=== PATIENT | female | born 1990 | race Caucasian/White ===

== ENCOUNTER 2021-05-29 03:57 | Emergency (ER) | payer MEDICAID, SELFPAY ==
[2021-05-29 04:02] VITALS: BP 151/79; PULSE 102; RESP 20; O2SAT 98; BMI 28.3
--- NOTE | 2021-05-29 04:11 | ED.GENADULT ---
HPI - General Adult General Chief complaint: OB Stated complaint: child Time Seen by Provider: 05/29/21 04:11 Source: patient and family (Significant other) Mode of arrival: ambulatory Limitations: no limitations History of Present Illness HPI narrative: 30-year-old female 40 week came in thinking she is in active labor. Patient not sure if she broke the water, increase frequency of contractions every 15 minutes now. Patient declined care, patient also admitted to use heroin IV 3 days ago. Related Data Allergies Allergy/AdvReac Type Severity Reaction Status Date / Time grapefruit [GRAPEFRUIT] Allergy Severe ANAPHYLAXIS Verified 05/29/21 04:06 Review of Systems Review of Systems: All other systems are reviewed and are negative Constitutional: Reports as per HPI and Reports no additional constitutional complaints Eyes: Reports as per HPI and Reports no additional eye complaints Reports system reviewed and no additional complaints, except as documented Cardiovascular: Reports as per HPI and Reports no additional cardiovascular complaints Respiratory: Reports as per HPI and Reports no additional respiratory complaints Gastrointestinal: Reports as per HPI and Reports no additional gastrointestinal complaints Genitourinary: Reports no additional female genitourinary complaints Musculoskeletal: Reports no additional musculoskeletal complaints Skin/Breast: Reports system reviewed and no additional complaints, except as docu Psychiatric: Reports no additional psychiatric complaints Endocrine: Reports no additional endocrine complaints Hematologic/Lymphatic: Reports no additional hematologic/lymphatic complaints Allergic/Immunologic: Reports no additional allergic/immunologic complaints Reports system reviewed and no additional complaints, except as documented and Reports Abnormal speech present [facility] Past Medical History Medical History Glaucoma Social History Social History Advance Directives: No Advance Directives Information Provided: No Patient : Yes Physical Exam Vital Signs: Vital Signs: Last Vital Signs Pulse 102 H 05/29/21 04:02 Resp 20 05/29/21 04:02 BP 151/79 H 05/29/21 04:02 Pulse Ox 98 05/29/21 04:02 Body Mass Index 28.3 Vital signs have been reviewed as appeared to be correct. Blood pressure normal. Heart rate normal. Respiration rate normal. Temperature normal. Oxygen saturation normal. Appearance: acute distress from pain and contraction Head: Normal external exam. Normocephalic. Atraumatic. No Mathis signs noted. No raccoon eyes noted Eyes: PERRLA. EOMI. Conjunctiva and sclera normal. Eyelids normal. ENT: TM's Normal. Pharynx normal. Uvula midline. Moist mucous membranes. No trismus noted. No drooling noted. No muffled voice noted. Neck: Normal inspection. Neck supple. FROM. No adenopathy. Thyroid Normal. No meningeal signs. No neck mass noted. CVS: Normal heart rate and rhythm. Heart sound normal. No murmurs noted. Pulses normal throughout. Respiratory: No respiratory distress. Painless inspiration. Breath sounds normal. No wheezes/rales/rhonchi noted. Chest nontender. No accessory muscle usage noted or decreased air movement noted. Abdomen: Soft and nontender. Bowel sounds normal in all 4 quadrants. No distention noted. No organomegaly noted. No visible injury noted. Pelvic exam: Cervix is dilated 5 cm , 50% effaced, feeling vertex bone. Back: No CVA tenderness. Full range of motion noted. Skin: Skin warm and dry. Normal skin color. Normal skin turgor. No rashes/lesions/lacerations noted. Extremities: No lower extremity edema. Extremities exhibit normal range of motion. Extremities nontender. Neuro: Oriented X 3. Cranial nerve exam: II-XII are grossly intact No motor deficit. No sensory deficit. Reflexes normal. Course Course Course Narrative: Assessment and plan. 30-year-old female 40 weeks dilated about 5-6 cm cervix and about 60% effaced, the case discussed with Dr. Pozo who recommended to call the ambulance, and transferred to [facility], the case discussed with Dr. Crane who accepted the patient to ED. Reevaluation(s) Reevaluation #1: Patient now is 9 cm dilated cervix with about 90% effaced, Dr. Pozo at the bedside Time: 04:26 Reevaluation #2: Baby Boy was delivered at 05:[address] Pozo, patient was tried under the heater, suction was performed with mucoid on your in aspirated, initially with 1st Apgars score is 6, 10 minutes score is 9. Medical Decision Making Lab Data Result diagrams: 05/29/21 04:59 05/29/21 04:59 Labs: Lab Results 05/29/21 05/29/21 05/29/21 Range/Units 04:13 04:59 04:59 WBC 24.0 H (4.8-10.8) X10*3/uL RBC 3.90 L (4.20-5.50) X10*6/uL Hgb 11.9 L (12.0-16.0) g/dl Hct 35.1 L (37-47) % MCV 90.0 (80-98) fL MCH 30.5 (27.0-33.0) pg MCHC 33.9 (31.0-35.0) g/dl RDW 13.4 (11.0-16.0) % Plt Count 424 H (160-400) X10*3/uL MPV 8.5 L (9.4-12.3) fL Immature Gran % (Auto) 1.5 H (0.0-0.4) % Neut % (Auto) 68.0 (45-73) % Lymph % (Auto) 23.7 (20-40) % Collingsworth % (Auto) 6.1 (2-11) % Eos % (Auto) 0.4 (0-4) % Baso % (Auto) 0.3 (0-2) % Lymph # (Auto) 5.7 H (1.2-4.9) X10*3/uL Collingsworth # (Auto) 1.5 H (0.1-1.2) X10*3/uL Eos # (Auto) 0.1 (0.0-0.4) X10*3/uL Baso # (Auto) 0.1 (0.0-0.2) X10*3/uL Abs Immat Gran (auto) 0.35 H (0.00-0.03) X10*3/uL Absolute Neuts (auto) 16.3 H (2.0-8.3) X10*3/uL Absolute Nucleated RBC 0.000 (0.0-0.012) X10*3/uL Nucleated RBC % (auto) 0.0 (0.0-0.2) /100WBC Smear Tech's Comments VERIFIED Sodium 139 (135-145) mmol/L Potassium 4.1 (3.3-5.1) mmol/L Chloride 108 (96-108) mmol/L Carbon Dioxide 17 L (22-29) mmol/L Anion Gap 18 (12-20) BUN 8 L (9-16) mg/dL Creatinine 0.63 (0.5-1.4) mg/dL Estim Creat Clear Calc 134.0 Estimated GFR > 60 Random Glucose 117 H (60-115) mg/dL Calcium 9.2 (8.4-10.2) mg/dL Ethyl Alcohol mg/dL Coronavirus (PCR) NEGATIVE (Negative) Influenza Type A (PCR) NEGATIVE (Negative) Influenza Type B (PCR) NEGATIVE (Negative) RSV RNA Qual (PCR) NEGATIVE (Negative) Blood Type Antibody Screen 05/29/21 05/29/21 Range/Units 04:59 05:03 WBC (4.8-10.8) X10*3/uL RBC (4.20-5.50) X10*6/uL Hgb (12.0-16.0) g/dl Hct (37-47) % MCV (80-98) fL MCH (27.0-33.0) pg MCHC (31.0-35.0) g/dl RDW (11.0-16.0) % Plt Count (160-400) X10*3/uL MPV (9.4-12.3) fL Immature Gran % (Auto) (0.0-0.4) % Neut % (Auto) (45-73) % Lymph % (Auto) (20-40) % Collingsworth % (Auto) (2-11) % Eos % (Auto) (0-4) % Baso % (Auto) (0-2) % Lymph # (Auto) (1.2-4.9) X10*3/uL Collingsworth # (Auto) (0.1-1.2) X10*3/uL Eos # (Auto) (0.0-0.4) X10*3/uL Baso # (Auto) (0.0-0.2) X10*3/uL Abs Immat Gran (auto) (0.00-0.03) X10*3/uL Absolute Neuts (auto) (2.0-8.3) X10*3/uL Absolute Nucleated RBC (0.0-0.012) X10*3/uL Nucleated RBC % (auto) (0.0-0.2) /100WBC Smear Tech's Comments Sodium (135-145) mmol/L Potassium (3.3-5.1) mmol/L Chloride (96-108) mmol/L Carbon Dioxide (22-29) mmol/L Anion Gap (12-20) BUN (9-16) mg/dL Creatinine (0.5-1.4) mg/dL Estim Creat Clear Calc Estimated GFR Random Glucose (60-115) mg/dL Calcium (8.4-10.2) mg/dL Ethyl Alcohol < 10 mg/dL Coronavirus (PCR) (Negative) Influenza Type A (PCR) (Negative) Influenza Type B (PCR) (Negative) RSV RNA Qual (PCR) (Negative) Blood Type O Negative Antibody Screen NEGATIVE Discharge Plan Discharge Clinical Impression: Normal delivery at term Patient Disposition: [facility] Transfer Details: [facility]
--- NOTE | 2021-05-29 04:19 | PC.NURSE ---
PT 40 WKS W/NO CARE. STATES 1 OTHER HEALTHY . STATES CONTRACTIONS BEGAN @ 0300, STATES BEFORE THAT SHE HAD LOST HER MUCOUS PLUG BUT DOESN'T KNOW WHEN. PT ADMITS TO HEROIN USE 3 DAYS AGO NASALLY. DENIES OTHER DRUG USE
--- NOTE | 2021-05-29 04:28 | PC.NURSE ---
@04:07 DR BECKFORD ASKS TO SPEAK WITH [facility] [phone] AGUSTINA MELÉNDEZ CASINO ASSISTANT MANAGER TAKES CALL AND SPEAKS WITH DR BECKFORD @04:09 [facility] CALLED FOR ACTIVE LABOR TRANSFER TO [facility] @04:18 DR BECKFORD ASKS FOR 2ND CALL TO [facility] FOR ETA OF AMBULANCE FOR THIS TRANSFER, TOLD SHORTLY @04:25 [facility] ARRIVES FOR TRANSFER
--- NOTE | 2021-05-29 04:59 | PC.NURSE ---
@04:50 DR BECKFORD ASKS FOR THE NICU TRUCK FROM [facility] @ [facility] REQUEST FOR BABY TRANSPORT [facility] CALLED FOR NICU TRUCK, TOLD BY [facility] THAT THEY ARE NOT CONTRACTED WITH US AND CAN NOT ACTIVATE THE NICU TEAM WITHOUT BEING CALLED BY [facility] OR [facility] FOR THE TRANSFER AND WILL NOT BE SENDING THE NICU TRUCK HERE FOR THIS TRANSFER TO [facility]. DUE TO US NOT HAVING A CONTRACT WITH [facility]. @6105 CALL OUT TO AGUSTINA MELÉNDEZ NURSE BLOCKMAN TO INFORM HER THAT [facility] NICU TRUCK NEEDED TO BE ACTIVATED BY HER FOR THIS BABY TRANSFER.
[2021-05-29 05:04] LABS: Basophils Absolute Auto 0.1 X10*3/uL (0.0-0.2); Basophils Percent Auto 0.3 % (0-2); Eosinophils Absolute Auto 0.1 X10*3/uL (0.0-0.4); Eosinophils Percent Auto 0.4 % (0-4); Hematocrit 35.1 % (37-47); Hemoglobin 11.9 g/dl (12.0-16.0); Imm Gran Abs Auto 0.35 X10*3/uL (0.00-0.03); Imm Gran Pct Auto 1.5 % (0.0-0.4); Lymphocytes Absolute Auto 5.7 X10*3/uL (1.2-4.9); Lymphocytes Percent Auto 23.7 % (20-40); MANUAL DIFF FLAG SCAN; Mean Corpuscular HGB Conc 33.9 g/dl (31.0-35.0); Mean Corpuscular Hemoglobin 30.5 pg (27.0-33.0); Mean Platelet Volume 8.5 fL (9.4-12.3); Monocytes Absolute Auto 1.5 X10*3/uL (0.1-1.2); Monocytes Percent Auto 6.1 % (2-11); Neutrophils Absolute Auto 16.3 X10*3/uL (2.0-8.3); Platelet Count 424 X10*3/uL (160-400); Red Cell Distribution Width 13.4 % (11.0-16.0); SCAN SMEAR FLAG 1
[2021-05-29 05:07] LABS: SLIDE REVIEW VERIFIED
[2021-05-29 05:08] LABS: Influenza A PCR NEGATIVE (Negative); Influenza B PCR NEGATIVE (Negative); Resp Syncy Virus RNA Qual PCR NEGATIVE (Negative); SARS COV2 PCR INHOUSE NEGATIVE (Negative)
[2021-05-29 05:24] LABS: Ethanol < 10 mg/dL
[2021-05-29 05:25] LABS: Anion Gap 18 (12-20); Blood Urea Nitrogen 8 mg/dL (9-16); Calcium 9.2 mg/dL (8.4-10.2); Carbon Dioxide 17 mmol/L (22-29); Chloride 108 mmol/L (96-108); Estimated Glomerular Filt Rate > 60; Glucose Random 117 mg/dL (60-115); Potassium 4.1 mmol/L (3.3-5.1); Sodium 139 mmol/L (135-145)
--- NOTE | 2021-05-29 05:48 | PC.NURSE ---
Full Term baby boy delivered at 05:48am vaginally. and this RN present for delivery. Midline episiotomy performed at bedside prior to infant's delivery. Infant in OA position. Upon , initial score of 6. Poor tone, color, respirations, and tone. Heart rate 120s. Brought to warmer, cord cut & clamped by . PPV bag mask used by this RN, suctioned thick meconium from baby's mouth, with stimulation performed. responded well to resuscitation interventions. also present. Initial temperature 99.2 rectally. Wrapped in warm blankets once stable and performed skin to skin. Mother wants to feed infant formula, refused . Father of baby also present for 's . information: 05/29/2021 @ 05:48am 21 inches long, 8 lbs 5.7oz (3792 grams), Head circumference: 35cm
--- NOTE | 2021-05-29 06:02 | PC.NURSE ---
@05:06 RETURN CALL FROM ENERGY AUDIT ADVISOR AGUSTINA FROM [facility] SAYING SHE CALL [facility] WHO THE HAVE A CONTRACT WITH AND THEY SAID THEY COULD NOT ACCOMMODATED THIS TRANSFER AND WAS TOLD TO CALL [facility] FOR NICU TRUCK @05:27 RETURN CALL FROM SAVANA BERRIOS SAYING THAT THEY CAN NOT BE DISPATCHED BY THEM @ [facility] ONLY BY [facility]. @ 05:57 A BABY BOY IS BORN, STILL NO AMBULANCE TRANSPORT AVAILABLE FOR THIS PT OR HER BABY TO [facility].
--- NOTE | 2021-05-29 06:14 | P.CONOB_ITS ---
OB Consult Note - HPI Data Service Date: 05/29/21 Primary Care Provider: Unknown Physician Narrative I was called at 4 o'clock regarding Lisha Donovan who is a 30 year old female presents to the emergency room was noted to be dictated in labor per ER physician. I arrived at 04:20 cervical exam was 9-10 head at -2, decision was made to deliver the patient in the emergency room because she is not stable enough for transfer. The patient admits to using heroin IV 3 days prior to presentation. GLOBAL COMPENSATION MANAGER - Review of Systems Review of Systems ROS Unobtainable: All systems reviewed & are unremarkable except as noted in HPI and below OB PMFSH Past Medical History Medical History Glaucoma Social History Social History Advance Directives: No Advance Directives Information Provided: No Patient : Yes Meds Allergies Allergy/AdvReac Type Severity Reaction Status Date / Time grapefruit [GRAPEFRUIT] Allergy Severe ANAPHYLAXIS Verified 05/29/21 04:06 OB Physical Exam Evaluation Baseline FHR:: 120 Station: -3 Effacement: 100% Dilation: 9 Presentation: Vertex OB Consult Results Labs CBC & Chem 7: 05/29/21 04:59 05/29/21 04:59 Labs: Short CBC 05/29/21 Range/Units 04:59 WBC 24.0 H (4.8-10.8) X10*3/uL Hgb 11.9 L (12.0-16.0) g/dl Hct 35.1 L (37-47) % Plt Count 424 H (160-400) X10*3/uL BMP 05/29/21 04:59 Sodium 139 Potassium 4.1 Chloride 108 Carbon Dioxide 17 L BUN 8 L Creatinine 0.63 Calcium 9.2 Antibody Screen Antibody Screen NEGATIVE 05/29/21 05:03 OB - CN: A/P Assessment and Plan (1) Normal delivery at term: Status: Acute Assessment and Plan: Since the patient was 9-10 cm and pushing decision was made that she is not stable enough to be transferred to any other hospital where there is a maternity care. Will proceed with vaginal delivery and transferred mom and baby pos tpartum afterwards. CBC type and screen sent to the [facility] ordered. Patient delivered spontaneous vaginal delivery with median episiotomy repaired with 3-0 Vicryl. No hemorrhage Will transfer the patient and bay stat Dr Hopper accepted the transfer OB Procedures - Admit Record Additional Comments
--- NOTE | 2021-05-29 06:19 | PM.OBPRVD ---
OB Delivery Summary Date and Time Date of Documentation: May 29, 2021 Time of Documentation: 618 OB Detailed Note/Comments Detailed Note/Additional Comments Delivery note lab data not available, the patient has no care, gives a history of heroin IV use 3 days prior to presentation She presented at 0400 hours this am complaining of UCs q 5 minutes. Her cervix done by the ER physician was 8-9 cm cm, 90% effaced and at a ?1 station. FHR 120's. I arrived at 04:20 a.m. cervical exam was 9-10 cm/ -3/ vertex/ 100% She progressed to complete and was allowed to push, bringing the ?s vertex to the perineum.The patient was noted to be complete and pushing, so was placed in the dorsal lithotomy position, prepped and draped in the usual sterile fashion for a vaginal delivery. The patient was asked to push and the head delivered spontaneously in the KALYAN position, over a midline episiotomy. The oropharynx were suctionned wth a bulb on the perineum. A nuchal cord was checked and none noted, and relieved around head as necessary. The anterior shoulder delivered easily and the posterior shoulder followed. The remainder of the infant was easily delivered and the oropharynx and nasopharynx was again bulb suctioned. The was noted to have spontaneous cry and spontaneous movement of all four extremities. The cord was clamped x 2 and cut and noted to have 2 arteries and one vein. The was passed to the waitinf RN and ER physocon. Cord blood obtained). The placenta delivered intact spontaneously. 30 units of Pitocin was placed in the IV bag to firm the uterus. Examination of the cervix and vaginal vault did not reveal any lacerations.. Examination of the perineum showedno extension of episiotom, /no urethral tears. The episiotomy was repaired with 3-0 Vicryl in the normal fashion. The patient tolerated this procedure well. All sponge and needle counts were correct
--- NOTE | 2021-05-29 06:25 | PC.NURSE ---
@06:20 DR KAUR SPEAKS WITH [facility] ON THIS PT AND HER BABY BOY FOR TRANSFER
--- NOTE | 2021-05-29 06:34 | W.PM.OPN ---
Operative Note Operative Note Date of Service: 05/29/21 Narrative: Delivery note lab data not available, the patient has no care, gives a history of heroin IV use 3 days prior to presentation She presented at 0400 hours this am complaining of UCs q 5 minutes. Her cervix done by the ER physician was 8-9 cm cm, 90% effaced and at a ?1 station. FHR 120's. I arrived at 04:20 a.m. cervical exam was 9-10 cm/ -3/ vertex/ 100% She progressed to complete and was allowed to push, bringing the ?s vertex to the perineum.The patient was noted to be complete and pushing, so was placed in the dorsal lithotomy position, prepped and draped in the usual sterile fashion for a vaginal delivery. The patient was asked to push and the head delivered spontaneously in the KALYAN position, over a midline episiotomy. The oropharynx were suctionned wth a bulb on the perineum. A nuchal cord was checked and none noted, and relieved around head as necessary. The anterior shoulder delivered easily and the posterior shoulder followed. The remainder of the infant was easily delivered and the oropharynx and nasopharynx was again bulb suctioned. The infant was noted to have spontaneous cry and spontaneous movement of all four extremities. The cord was clamped x 2 and cut and noted to have 2 arteries and one vein. The was passed to the waitinf RN and ER physocon. Cord blood obtained). The placenta delivered intact spontaneously. 30 units of Pitocin was placed in the IV bag to firm the uterus. Examination of the cervix and vaginal vault did not reveal any lacerations.. Examination of the perineum showedno extension of episiotom, /no urethral tears. The episiotomy was repaired with 3-0 Vicryl in the normal fashion. The patient tolerated this procedure well. All sponge and needle counts were correct
--- NOTE | 2021-05-29 06:36 | PC.NURSE ---
@ THIS TIME DHARMESH FROM [facility] PT TX LINE CALLS TO SAY NOT TO SEND THESE PT'S UNTIL THEY CALL US BACK WITH ROOM ASSIGNMENT
[2021-05-29 06:51] VITALS: BP 125/75; PULSE 100; RESP 18; TEMP 36.9; O2SAT 98
[2021-05-29 07:26] VITALS: BP 126/87; PULSE 106; RESP 20; TEMP 37.1; O2SAT 98
--- NOTE | 2021-05-29 07:35 | PC.NURSE ---
Pt alert and oriented, vss. currently cuddling and singing to baby. Mom interacting appropriately with baby. Pt ambula to bathroom x1 to void and change pad. Pad with moderate amount of dark colored blood noted on pad and toilet, no clots noted. Pt in no apparent distress. at bedside. Pt awaiting transport to [facility].
--- NOTE | 2021-05-29 08:00 | MHC.CARE ---
51A filed by the CARE Team
[2021-05-29] MEDS: Rho(D) Immune Globulin 300 MCG SYRINGE IM (08:58)
[2021-05-29] MEDS: Ibuprofen 400 MG TABLET PO (08:58)
--- NOTE | 2021-05-29 09:31 | PC.NURSE ---
Transferred via EMS to [facility], room 1730. Report given to GALEN Stoll at [facility]. in NICU truck with [facility].
== END 2021-05-29 09:33 | disposition short-term general hospital (02) ==
PROVIDERS: Emergency Medicine; Emergency Provider Emergency Medicine Emergency Medical Services
DX: O99.324 Drug use complicating childbirth (principal); F11.20 Opioid dependence, uncomplicated; Z3A.40 40 weeks gestation of pregnancy; Z37.0 Single live birth; Z20.822 Contact with and (suspected) exposure to COVID-19
CPT/HCPCS: 0241U; 36415; 59409; 80048; 82077; 85025; 86850; 86900; 86901; 88307; 96372; 99285; J2790